=== PATIENT | female | born 1940 | race Caucasian/White ===

== ENCOUNTER → 2017-11-22 | Outpatient (CLI) | payer OTHER ==
[~2017-11-22] MED LIST: CALCIUM 600 +1 EAC1 PO; CELEBREX 200 M200 MG PO; CRESTOR10 MG PO; EFFEXOR XR75 MG PO; FISH OIL 1,2001 EAC3 PO; HYDROCODON-ACE1 EACH PO; TRIAMTERENE-HC1 EAC1 PO
== END ==
LOC: RAD 01:09
DX: Z12.31 Encounter for screening mammogram for malignant neoplasm of breast (principal)

== ENCOUNTER → 2018-11-26 | Outpatient (CLI) | payer OTHER | LOC: RAD 09:22 | DX: Z12.31 Encounter for screening mammogram for malignant neoplasm of breast (principal); N60.02 Solitary cyst of left breast ==

== ENCOUNTER → 2019-08-18 | Outpatient (CLI) | payer OTHER | LOC: CAT 12:34 | DX: J47.9 Bronchiectasis, uncomplicated (principal); J98.4 Other disorders of lung; Q67.6 Pectus excavatum ==

== ENCOUNTER → 2019-12-16 | Outpatient (CLI) | payer OTHER ==
[2019-12-16 09:29] LABS: CREATININE 1.4 mg/dL (0.6-1.0)
== END ==
LOC: CAT 08:55 → LABMALL 08:55 → CAT 11:50
PROVIDERS: Internal Medicine
DX: J92.9 Pleural plaque without asbestos (principal); J47.9 Bronchiectasis, uncomplicated

== ENCOUNTER → 2019-12-28 | Outpatient (CLI) | payer OTHER | LOC: BC 13:36 | DX: Z12.31 Encounter for screening mammogram for malignant neoplasm of breast (principal) ==

== ENCOUNTER → 2020-05-23 | Outpatient (CLI) | payer OTHER | LOC: LAB 09:00 | PROVIDERS: ATTEND Internal Medicine | DX: Z11.59 Encounter for screening for other viral diseases (principal); Z01.818 Encounter for other preprocedural examination ==

== ENCOUNTER → 2020-05-27 | Outpatient (CLI) | payer OTHER ==
--- NOTE | 2020-05-30 19:39 | SLE ---
[facility] [place] [address] POLYSOMNOGRAPHY STUDY Name: JUSTIN SALAS Room #: REG [facility]#: [id number] Admission: 05/27/20 Attend Phys: Naye Lin MD Discharge: Date of : 38 Report #: [id number] THIS REPORT FOR: //name// CC: Naye CHRISTY Physician staff Ruiz Smart MD DATE OF SERVICE: 05/28/2020 SLEEP STUDY REFERRING PHYSICIAN: Ruiz Smart MD. The patient is an 79 years old who weighs 148 pounds with a BMI of 23.9. The patient's Tollhouse score was 2. The patient underwent split night study performed at [facility]. During the night study, the patient spent 440 minutes in bed and slept for 269 minutes with a low sleep efficiency of 61%. Sleep latency was 13.3 minutes with a REM latency of 34 minutes which was short. Sleep architecture showed normal stage 1 sleep, increased stage 2 sleep, absent slow wave and reduced REM sleep, which was only 5.8% of total sleep time. During the initial diagnostic portion of the study, the patient slept for 113 minutes. During that time, there were 159 obstructive apneas, no mixed apneas, no central apneas and 20 hypopneas. The patient's AHI was 95 per hour with a REM AHI of 96 per hour and a supine AHI of 95 per hour. EKG monitoring revealed an average heart rate of 88 beats per minute. No sustained arrhythmias observed. PLMS were seen at an index of 6.4 per hour and none caused EEG arousals. Nocturnal oximetry study revealed an average oxygen saturation of 92% with the lowest of 83%. Twenty seven minutes were spent and oxygen saturation less than 89%. The patient met the criteria for CPAP initiation. It was started at 7 cm water and titrated up to 19 cm water. Due to persistent respiratory events, the patient had a brief trial of BiPAP initially at 21/15 for which the patient slept for 28.5 minutes with an AHI of 46 per hour. At the final pressure of 25/17, the patient had only 5.9 minutes of sleep. The patient's AHI was 0 per hour and oxygen saturation remained above 92%. The patient had no REM sleep, but slept in supine sleep throughout. Due to limited time an optimum BiPAP pressure could not be achieved. [facility] [address] [place] [address] POLYSOMNOGRAPHY STUDY Name: JUSTIN SALAS [id number] Admission: 05/27/20 Attend Phys: Naye Lin MD Discharge: Date of : 38 Report #: [id number] IMPRESSION: 1. Severe obstructive sleep apnea at an AHI of 95 per hour. 2. Nocturnal hypoxia secondary to obstructive sleep apnea resolved with positive pressure therapy. 3. No clinically significant periodic limb movements. RECOMMENDATIONS: 1. Optimum CPAP or BiPAP pressure was not achieved due to the severity of sleep apnea and reduced sleep time. I would recommend that the patient should be placed on an auto BiPAP at a maximum IPAP pressure of 25 and a minimum EPAP pressure of 17 with pressure support of 4. The patient should have a download data in next 30 days to assess the efficacy of the current auto BiPAP. 2. Avoid LEHR LOADER depressants. 3. Cautioned regarding driving until symptoms of sleep apnea resolve with the use of BiPAP. <ELECTRONICALLY SIGNED> By: Theodore Biggs MD 05/30/20 [id number] Theodore Biggs MD /nt
== END ==
LOC: SLEEPLAB 11:30
PROVIDERS: ATTEND Internal Medicine Pulmonary Disease
DX: G47.33 Obstructive sleep apnea (adult) (pediatric) (principal); R09.02 Hypoxemia

== ENCOUNTER → 2020-06-15 | Outpatient (CLI) | payer OTHER ==
[2020-06-15 10:23] LABS: CREATININE 1.7 mg/dL (0.6-1.0)
== END ==
LOC: CAT 09:42
PROVIDERS: ATTEND Internal Medicine
DX: R91.8 Other nonspecific abnormal finding of lung field (principal); M47.814 Spondylosis without myelopathy or radiculopathy, thoracic region; D73.89 Other diseases of spleen; M41.84 Other forms of scoliosis, thoracic region; J98.4 Other disorders of lung

== ENCOUNTER → 2020-09-26 | Outpatient (CLI) | payer OTHER | LOC: LAB 12:26 | PROVIDERS: ATTEND Pediatrics | DX: Z01.812 Encounter for preprocedural laboratory examination (principal); Z20.828 Contact with and (suspected) exposure to other viral communicable diseases ==

== ENCOUNTER → 2020-09-27 | Outpatient (CLI) | payer OTHER ==
[~2020-09-27] MED LIST changes: +ALBUTEROL2.5 MG/31 INH; +CURCUMIN1 GM PO; +ESSENTIAL WOMA1 EAC1 PO; +MYRBETRIQ25 MG PO; +NEURONTIN 300M300 M2 PO; +OYSTER SHELL 51 EACH PO; +PROBIOTIC1 EAC7 PO; +PROTONIX40 M2 PO; +SYMBICORT80 MCG/4.1 INH; +TURMERIC500 M2 PO; +VITAMIN B-121000 MC2 PO; +[UNRECOGNIZED DRUG - REMARK] NASAL
== END ==
LOC: CAT 12:59
PROVIDERS: ATTEND Pediatrics
DX: J47.9 Bronchiectasis, uncomplicated (principal); I25.10 Atherosclerotic heart disease of native coronary artery without angina pectoris

== ENCOUNTER → 2020-09-30 | Outpatient (CLI) | payer OTHER ==
[~2020-09-30] VITALS: Ht 167.6 cm; Wt 67.1 kg
[2020-09-30 07:48] VITALS: BP 104/66
--- NOTE | 2020-10-03 17:06 | PATH ---
[facility] [address] [place] [address] PATHOLOGY RPT PROCEDURE Name: JUSTIN SALAS Room #: REG [facility]..#: [id number] Admission: 09/30/20 Date of : 38 Discharge: Report #: [id number] Path Case #: [id number] [facility] Accession Number: [id number] . 01 Material submitted: . lung - RLL TISSUE BIOPSY. Modifiers: right, lower lobe . 01 Clinical history: . LUNG MASS . 02 Diagnosis: Lung, right lower lobe tissue, biopsy: - Benign alveolated lung as well as bronchial tissue. - Mild acute and chronic inflammation. - Negative for malignancy. (IUV/db; 10/03/2020) LBQ 10/03/2020 1141 Local . 02 Electronically signed: . Karely Russ MD, Pathologist NPI- [id number] . 01 Gross description: . Received in formalin labeled "Justin Salas, RLL APSPEC" are multiple minute fragments of vaughan-brown tissue measuring in aggregate 0.8 x 0.4 x 0.1 cm. The specimen is filtered and submitted entirely in cassettes A1-A2. ([facility]; 10/01/2020) [facility] 10/01/2020 1050 Local . 02 Pathologist provided ICD-10: J18.9, J98.4 . 02 CPT . 928378 Specimen Comment: A courtesy copy of this report has been sent to [phone] Specimen Comment: Report sent to Performed at: [address], [place], [place] [id number] MD Akash Cano MD Phone: [phone] Performed at: [address] [id number] MD Karely Russ MD Phone: [phone]
--- NOTE | 2020-10-04 10:07 | PATH ---
[facility] [address] [place] [address] PATHOLOGY RPT PROCEDURE Name: JUSTIN SALAS [id number] Admission: 09/30/20 Date of : 38 Discharge: Report #: [id number] Path Case #: [id number] Note [facility] Accession Number: [id number] TESTS RESULT FLAG UNITS REF RANGE LAB Clinician Provided Cytology Information No. of containers..01 Other (Miscellaneous) Source: BAL RLL DIAGNOSIS: BAL RLL NEGATIVE FOR MALIGNANT EPITHELIAL CELLS. REACTIVE BRONCHIAL CELLS ARE PRESENT. PULMONARY MACROPHAGES (DUST CELLS) ARE PRESENT. Pathologist ICD10: 02 R91.8 Signed out by: 02 Karely Russ MD, Pathologist NPI- [id number] Performed by: 01 Hiwot Francis Funnel Coater ([facility]) Gross description: 01 10ML, CLOUDY PINK, 1 TP /LCS 09/30/2020 1342 Local FLAG LEGEND: L-Low Normal,H-High Normal,LL-Alert Low,HH-Alert High <-Panic Low,>-Panic High,A-Abnormal,AA-Critical Abnormal Performed at: [address] [place] [address] Akash Cano MD, [address] [address] Karely Russ MD, Specimen Comment: A courtesy copy of this report has been sent to [phone] Specimen Comment: [phone] Specimen Comment: Report sent to / DR CHRISTY Performed at: [address], [place], [place] [id number] MD Akash Cano MD Phone: [phone]
--- NOTE | 2020-10-04 10:07 | PATH ---
[facility] [address] [address] PATHOLOGY RPT PROCEDURE Name: JUSTIN SALAS Room #: REG [facility]#: [id number] Admission: 09/30/20 Date of : 38 Discharge: Report #: [id number] Path Case #: [id number] Note [facility] Accession Number: [id number] TESTS RESULT FLAG UNITS REF RANGE LAB Clinician Provided Cytology Information No. of containers..01 Slide Source: TBNA RLL DIAGNOSIS: 02 TBNA RLL NEGATIVE FOR MALIGNANT EPITHELIAL CELLS. REACTIVE BRONCHIAL CELLS ARE PRESENT. Pathologist ICD10: 02 R91.8 Signed out by: Karely Russ MD, Pathologist NPI- [id number] Performed by: Hiwot Francis [employer] ([facility]) Gross description: 01 2 FIXED /LCS 09/30/2020 1334 Local FLAG LEGEND: L-Low Normal,H-High Normal,LL-Alert Low,HH-Alert High <-Panic Low,>-Panic High,A-Abnormal,AA-Critical Abnormal Performed at: [address] [place] [address] Akash Cano MD, [address] [address] Karely Russ MD, Specimen Comment: A courtesy copy of this report has been sent to [phone] Specimen Comment: [phone] Specimen Comment: Report sent to / DR CHRISTY Performed at: [address], [place], [place] [id number] MD Akash Cano MD Phone: [phone]
--- NOTE | 2020-10-04 10:07 | PATH ---
[facility] [address] [place] [address] PATHOLOGY RPT PROCEDURE Name: JUSTIN SALAS Room #: REG [id number] Admission: 09/30/20 Date of : 38 Discharge: Report #: [id number] Path Case #: [id number] Note [facility] Accession Number: [id number] TESTS RESULT FLAG UNITS REF RANGE LAB Clinician Provided Cytology Information No. of containers..01 Other (Miscellaneous) Source: [facility] [place] RLL DIAGNOSIS: [facility] [place] R[place] NEGATIVE FOR MALIGNANT EPITHELIAL CELLS. REACTIVE BRONCHIAL CELLS ARE PRESENT. PULMONARY MACROPHAGES AND MILD CHRONIC INFLAMMATION. Pathologist ICD10: 02 R91.8 Signed out by: 02 Karely Russ MD, Pathologist NPI- [id number] Performed by: 01 Hiwot Francis, Charge Authorizer ([facility]) Gross description: 01 1 TP /LCS 09/30/2020 1338 Local FLAG LEGEND: L-Low Normal,H-High Normal,LL-Alert Low,HH-Alert High <-Panic Low,>-Panic High,A-Abnormal,AA-Critical Abnormal Performed at: [address] [place] [address] Akash Cano MD, [address] [address] Karely Russ MD, Specimen Comment: A courtesy copy of this report has been sent to [phone] Specimen Comment: [phone] Specimen Comment: [id number] Specimen Comment: Report sent to / DR CHRISTY Performed at: [address], [place], [place] [id number] MD Akash Cano MD Phone: [phone]
== END | disposition home or self-care (01) ==
LOC: PUL 06:44 → EDSTATUS 11:10
PROVIDERS: ATTEND Pediatrics
DX: R91.8 Other nonspecific abnormal finding of lung field (principal); J98.4 Other disorders of lung; J18.9 Pneumonia, unspecified organism; I12.9 Hypertensive chronic kidney disease with stage 1 through stage 4 chronic kidney disease, or unspecified chronic kidney disease; N18.30 Chronic kidney disease, stage 3 unspecified; E78.00 Pure hypercholesterolemia, unspecified; K21.9 Gastro-esophageal reflux disease without esophagitis; G47.30 Sleep apnea, unspecified; G62.9 Polyneuropathy, unspecified; Z98.890 Other specified postprocedural states; Z79.899 Other long term (current) drug therapy; Z87.442 Personal history of urinary calculi; Z98.41 Cataract extraction status, right eye; Z98.42 Cataract extraction status, left eye; Z90.49 Acquired absence of other specified parts of digestive tract
CPT/HCPCS: 62110; 62900; 70005

== ENCOUNTER → 2020-10-06 | Outpatient (CLI) | payer OTHER | LOC: ULTRA 10:54 | PROVIDERS: ATTEND Internal Medicine Nephrology | DX: N28.1 Cyst of kidney, acquired (principal); N18.32 Chronic kidney disease, stage 3b ==

== ENCOUNTER → 2021-03-20 | Outpatient (CLI) | payer OTHER | LOC: BC 12:49 | DX: Z12.31 Encounter for screening mammogram for malignant neoplasm of breast (principal) ==

== ENCOUNTER → 2021-12-21 | Outpatient (CLI) | payer OTHER | LOC: BC 08:03 | DX: N63.21 Unspecified lump in the left breast, upper outer quadrant (principal) ==